=== PATIENT | female | born 1960 | race American Indian/Alaskan Native ===

== ENCOUNTER 2017-01-30 09:11 | Emergency (ER) | payer OTHER ==
[2017-01-30] MEDS ORDERED: NACL 0.9% 1000 ML 1,000 ML IV ONE (09:54)
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
[2017-01-30 10:33] LABS: Hematocrit 40.3 % (30.3-42.9); Hemoglobin 13.4 gm/dl (10.1-14.3); Mean Corpuscular HGB Conc 33 % (30-34); Mean Corpuscular Hemoglobin 30 pg (28-32); Mean Corpuscular Volume 89 fl (79-97); Platelet Count 155 K/mm3 (140-440); Red Blood Count 4.54 M/mm3 (3.65-5.03); Red Cell Distribution Width 13.6 % (13.2-15.2); White Blood Count 5.3 K/mm3 (4.5-11.0)
[2017-01-30 10:37] LABS: Anion Gap 18 mmol/L; BUN/Creatinine Ratio 11.11; Blood Urea Nitrogen 10 mg/dL (7-17); Carbon Dioxide 23 mmol/L (22-30); Chloride 105.8 mmol/L (98-107); Glucose 93 mg/dL (65-100); Potassium 3.8 mmol/L (3.6-5.0); Sodium 143 mmol/L (137-145)
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
[2017-01-30 13:19] VITALS: BP 156/85
== END 2017-01-30 14:08 | disposition home or self-care (01) ==
LOC: ED 09:11
DX: R56.9 Unspecified convulsions (principal); V49.9XXA Car occupant (driver) (passenger) injured in unspecified traffic accident, initial encounter; Y93.89 Activity, other specified; Y99.8 Other external cause status; Y92.89 Other specified places as the place of occurrence of the external cause
CPT/HCPCS: 36415; 70450; 80048; 80164; 83735; 85027; 96360; 96361; 99285; G0480; J7030; 80320